=== PATIENT | female | born 1985 | race Caucasian/White ===

== ENCOUNTER 2023-03-02 03:58 | Emergency (ER) | payer MEDICAID, OTHER, SELFPAY ==
[2023-03-02] MEDS ORDERED: Ampicillin/Sulbactam 3 GM VIAL ONE (04:18)
[2023-03-02] MEDS ORDERED: fentaNYL 50 mcg/mL 1 mL Vial ONE ×4 (04:18→06:58)
[2023-03-02] MEDS ORDERED: Sodium Chloride 0.9% 100 ML ONE (04:19)
[2023-03-02] MEDS ORDERED: Boostrix 0.5 ML (Tdap) VIAL (>/=7 yrs of age) ONE (04:39)
[2023-03-02] MEDS ORDERED: Lidocaine 2% PF 5 ML VIAL ONE (05:08)
== END 2023-03-02 07:03 | disposition short-term general hospital (02) ==
LOC: BURERS 03:58
DX: S62.635A Displaced fracture of distal phalanx of left ring finger, initial encounter for closed fracture (principal); S62.633A Displaced fracture of distal phalanx of left middle finger, initial encounter for closed fracture; S62.201A Unspecified fracture of first metacarpal bone, right hand, initial encounter for closed fracture; S61.451A Open bite of right hand, initial encounter; W54.0XXA Bitten by dog, initial encounter
CPT/HCPCS: 90471; 90715; 96365; 96375; 96376; J0295; J2001; J3010; J3490